=== PATIENT | female | born 1935 | race Caucasian/White ===

== ENCOUNTER 2016-11-24 14:59 | Emergency (ER) | payer MEDICARE, OTHER ==
[~2016-11-24] VITALS: Ht 152.4 cm; Wt 62.0 kg
[~2016-11-24 14:59] MED LIST: COZA100T PO; GABA100C4 PO; HYDR-3516 PO; LEVO112T2 PO
[2016-11-24 15:05] VITALS: BP 116/72; PULSE 77; RESP 15; TEMP 98.6; O2SAT 95
--- NOTE | 2016-11-24 15:14 | PD ---
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 She is concerned about possible fracture. She denies numbness or tingling. Pain is rated as a 7/10 with ambulation. Patient walks with a cane. Patient does not wear a foot drop brace and she feels it is more cumbersome. Patient is allergic to Septra, sulfa, and tramadol. PFSH Past Medical History Cancer: No Cardiovascular Problems: No COPD: Yes Diabetes: No Diminished Hearing: No Endocrine: No Gastrointestinal Disorders: No Genitourinary: Yes (BLADDER REPAIR SUSPENSION) Hepatitis: No Hiatal Hernia: No Hypertension: Yes Immune Disorder: No Musculoskeletal: Yes (ARTHRITIS) Neurologic: No Psychiatric: No Reproductive: No Respiratory: Yes (BRONCHITIS, COPD) Immunizations Current: No Thyroid Disease: Yes ?: Not Past Surgical History Abdominal Surgery: Yes (GRETA.) AICD: No Cardiac Surgery: No Cholecystectomy: Yes Eye Surgery: Yes (BILAT. CATARACT SX) Gynecologic Surgery: Yes (HYSTERECTOMY) Hysterectomy: Yes Joint Replacement: No Neurologic Surgery: No Oral Surgery: Yes (polyps from throat benign) Pacemaker: No Other Surgery: Yes Social History Alcohol Use: Yes (OCC) Tobacco Use: No (QUIT 3 YRS AGO) Substance Use: No Allergies-Medications (Allergen,Severity, Reaction): Coded Allergies: Septra (Verified Allergy, Severe, swelling of tongue, 05/28/16) Sulfa (Verified Allergy, Severe, swelling of tongue, 05/28/16) Tramadol (Unverified Adverse Reaction, Severe, NAUSEA, 05/28/16) Reported Meds & Prescriptions Reported Meds & Active Scripts Active Reported Hydrochlorothiazide 12.5 Mg Cap 12.5 Mg PO 3XPERWEEK Levothyroxine (Levothyroxine Sodium) 112 Mcg Tab 112 Mcg PO DAILY Hydrocodone-Acetaminophen 5-325 mg Tab 1 Tab PO Q6H PRN Cozaar (Losartan Potassium) 100 Mg Tab 100 Mg PO DAILY Gabapentin 100 Mg Cap 100 Mg PO TID Review of Systems Except as stated in HPI: all other systems reviewed are Neg General / Constitutional: No: Fever Eyes: No: Visual changes HENT: No: Headaches Cardiovascular: No: Chest Pain or Discomfort Respiratory: No: Shortness of Breath Gastrointestinal: No: Abdominal Pain Genitourinary: No: Dysuria Musculoskeletal: Positive: Myalgias (see history present illness.), Arthralgias , Limited ROM, Pain Skin: No Rash Neurologic: No: Weakness Psychiatric: No: Depression Endocrine: No: Polydipsia Hematologic/Lymphatic: No: Easy Bruising Physical Exam Narrative GENERAL: Patient appears no acute distress. SKIN: Warm and dry. Normal color. Normal turgor. HEAD: Atraumatic. Normocephalic. EYES: Pupils equal and round. No scleral icterus. No injection or drainage. ENT: No nasal bleeding or discharge. Mucous membranes pink and moist. Pharynx is clear. Airway is patent. NECK: Trachea midline. Supple and nontender. CARDIOVASCULAR: Regular rate and rhythm. RESPIRATORY: No accessory muscle use. Clear to auscultation. Breath sounds equal bilaterally. MUSCULOSKELETAL: Extremities without clubbing, cyanosis, or edema. No obvious deformities. Patient has noted foot drop on the right. Patient complains of pain with palpation to the distal lateral foot without obvious signs of trauma or dislocation. No significant swelling is noted. Patient does have mild tenderness at the base of the fifth metatarsal. NEUROLOGICAL: Awake and alert. No obvious cranial nerve deficits. Motor grossly within normal limits. Five out of 5 muscle strength in the arms and legs. Normal speech. PSYCHIATRIC: Appropriate mood and affect; insight and judgment normal. Data Data Last Documented VS Orders Foot, Complete ([id number]) (11/24/16 15:17) Splint Or Brace Apply/Monitor (11/24/16 16:03) Shoe Cast (11/24/16 ) MDM Medical Decision Making Medical Screen Exam Complete: Yes Emergency Medical Condition: Yes Differential Diagnosis Fall. Right foot sprain. Right foot fracture. Narrative Course Patient is medically stable at time of exam. X-rays the right foot is ordered. Ice pack is applied. X-ray shows slightly displaced proximal fifth metatarsal fracture. Patient is placed in a postop shoe. Patient has a walker at home. Patient is to use ice and limited ambulation and follow-up with Dr. Hernández if necessary. Patient follow with her primary care physician as discussed. Patient can return to emergency department as needed. Diagnosis Primary Impression: Fracture of fifth metatarsal bone of right foot Qualified Code: S92.351A - Closed displaced fracture of fifth metatarsal bone of right foot, initial encounter Referrals: Warren Hernández DPM Patient Instructions: General Instructions Additional Instructions: Ice pack is applied. X-ray shows slightly displaced proximal fifth metatarsal fracture. Patient is placed in a postop shoe. Patient has a walker at home. Patient is to use ice and limited ambulation and follow-up with Dr. Hernández if necessary. Patient follow with her primary care physician as discussed. Patient can return to emergency department as needed. Med/Other Pt SpecificInfo: No Meds Exist/No RX given Disposition: DISCHARGE HOME Condition: Stable Ean Aguirre November 24, 2016 15:14 Patient follow with her primary care physician as discussed. Patient can return to emergency department as needed. Med/Other Pt SpecificInfo: No Meds Exist/No RX given Disposition: DISCHARGE HOME Condition: Stable Ean Aguirre November 24, 2016 15:14
[2016-11-24] MEDS ORDERED: HYDR12.57 PO (15:25)
--- NOTE | 2016-11-24 15:58 | RADHPO ---
EXAM DATE/TIME: 11/24/2016 15:28 [facility] COMPARISON: No previous studies available for comparison. INDICATIONS : Right foot pain post fall two days ago MEDICAL HISTORY : None. SURGICAL HISTORY : None. ENCOUNTER: Initial ACUITY: 2 days PAIN SCORE: 6/10 LOCATION: Right lateral foot FINDINGS: Mild osteoarthritis of the first MTP joint. Plantar and posterior calcaneal spur formation. Mildly di splaced fracture through the base of the fifth metatarsal. Bone density is decreased. CONCLUSION: 1. Fifth metatarsal fracture. Mina Devlin MD on November 24, 2016 at 15:56 Board Certified Radiologist. This report was verified electronically.
== END 2016-11-24 16:36 | disposition home or self-care (01) ==
LOC: PHEFT 14:59
DX: S92.351A Displaced fracture of fifth metatarsal bone, right foot, initial encounter for closed fracture (principal); M21.371 Foot drop, right foot; J44.9 Chronic obstructive pulmonary disease, unspecified; I10 Essential (primary) hypertension; M19.90 Unspecified osteoarthritis, unspecified site; E07.9 Disorder of thyroid, unspecified; W19.XXXA Unspecified fall, initial encounter; Z79.899 Other long term (current) drug therapy; Z88.2 Allergy status to sulfonamides
CPT/HCPCS: 73630; 99283; L3260

== ENCOUNTER 2017-08-09 02:46 | Emergency (ER) | payer MEDICARE, OTHER ==
[~2017-08-09] VITALS: Ht 149.9 cm; Wt 60.2 kg
[~2017-08-09 02:46] MED LIST changes: +HYDR12.57 PO
[2017-08-09 02:52] VITALS: BP 177/93; PULSE 102; RESP 18; TEMP 98.5; O2SAT 97
[2017-08-09] MEDS ORDERED: SODIUM CHLOR 0.9% 1000 ML INJ 1,000 ML IV SCH (03:03)
--- NOTE | 2017-08-09 03:09 | PD ---
HPI Chief Complaint: abdominal pain Time Seen by Provider: 02:49 Travel History International Travel<30 days: No Contact w/Intl Traveler<30days: No Traveled to known affect area: No History of Present Illness HPI 81-year-old female complains of low back pain and abdominal pain. Patient started having low back pain yesterday. Patient states that pain is aching pain localized to low back area. Patient denies any pain radiation. Patient states the pain is worse today. Patient started having low abdominal pain and nausea vomiting this evening. Patient states the pain in cramping pain localized to left side and lower abdomen area. Patient denies any pain radiation. Patient states that she has intermittent nausea vomiting this evening also. Patient denies any dysuria or frequency. Patient denies any vaginal discharge or bleeding. Patient denies any fever chills. Patient status post cholecystectomy and hysterectomy in the past. PFSH Past Medical History Cancer: No Cardiovascular Problems: No COPD: Yes Diabetes: No Diminished Hearing: No Endocrine: No Gastrointestinal Disorders: No Genitourinary: Yes (BLADDER REPAIR SUSPENSION) Hepatitis: No Hiatal Hernia: No Hypertension: Yes Immune Disorder: No Musculoskeletal: Yes (ARTHRITIS) Neurologic: No Psychiatric: No Reproductive: No Respiratory: Yes (BRONCHITIS, COPD) Immunizations Current: No Thyroid Disease: Yes Past Surgical History Abdominal Surgery: Yes (GRETA.) AICD: No Cardiac Surgery: No Cholecystectomy: Yes Eye Surgery: Yes (BILAT. CATARACT SX) Gynecologic Surgery: Yes (HYSTERECTOMY) Hysterectomy: Yes Joint Replacement: No Neurologic Surgery: No Oral Surgery: Yes (polyps from throat benign) Pacemaker: No Other Surgery: Yes Social History Alcohol Use: Yes (OCC) Tobacco Use: No (QUIT 3 YRS AGO) Substance Use: No Allergies-Medications (Allergen,Severity, Reaction): Coded Allergies: Sulfa (Sulfonamide Antibiotics) (Unverified Allergy, Severe, swelling of tongue, 08/09/17) sulfamethoxazole (Unverified Allergy, Severe, swelling of tongue, 08/09/17) trimethoprim (Unverified Allergy, Severe, swelling of tongue, 08/09/17) tramadol (Unverified Adverse Reaction, Severe, NAUSEA, 08/09/17) Uncoded Allergies: Muscle Relaxant (Allergy, Severe, Angioedema , 08/09/17) Reported Meds & Prescriptions Reported Meds & Active Scripts Active Reported Preservision Areds (Multiple Vitamins W/ Minerals) 1 Tab 1 Tab PO DAILY Hydrochlorothiazide 12.5 Mg Cap 12.5 Mg PO 3XPERWEEK Levothyroxine (Levothyroxine Sodium) 112 Mcg Tab 112 Mcg PO DAILY Cozaar (Losartan Potassium) 100 Mg Tab 100 Mg PO DAILY Review of Systems General / Constitutional: No: Fever Eyes: No: Visual changes HENT: No: Headaches Cardiovascular: No: Chest Pain or Discomfort Respiratory: No: Shortness of Breath Gastrointestinal: Positive: Nausea, Vomiting, Abdominal Pain Genitourinary: No: Dysuria Musculoskeletal: No: Pain Skin: No Rash Neurologic: No: Weakness Psychiatric: No: Depression Endocrine: No: Polydipsia Hematologic/Lymphatic: No: Easy Bruising Physical Exam Narrative GENERAL: Well-nourished, well-developed patient. SKIN: Focused skin assessment warm/dry. HEAD: Normocephalic. EYES: No scleral icterus. No injection or drainage. NECK: Supple, trachea midline. No JVD or lymphadenopathy. CARDIOVASCULAR: Regular rate and rhythm without murmurs, gallops, or rubs. RESPIRATORY: Breath sounds equal bilaterally. No accessory muscle use. GASTROINTESTINAL: Abdomen soft, nondistended. Patient has mild to moderate tenderness on palpation left upper quadrant, left low quadrant and the lower abdomen area. No rebound tenderness. No mass. MUSCULOSKELETAL: No cyanosis, or edema. BACK: Patient has mild tenderness on palpation lower lumbar area, without obvious deformity. No CVA tenderness. Neurologic exam normal. Data Data Last Documented VS Vital Signs Date Time Temp Pulse Resp B/P (MAP) Pulse Ox O2 Delivery O2 Flow Rate FiO2 08/09/17 04:38 68 15 127/67 (87) 96 Room Air 08/09/17 02:52 98.5 Orders Orders Complete Blood Count With Diff (08/09/17 03:03) Comprehensive Metabolic Panel (08/09/17 03:03) Lipase (08/09/17 03:03) Prothrombin Time / Inr (Pt) (08/09/17 03:03) Act Partial Throm Time (Ptt) (08/09/17 03:03) Urinalysis - C+S If Indicated (08/09/17 03:03) Ct Abd/Pel W Iv Contrast(Rout) (08/09/17 03:03) Iv Access Insert/Monitor (08/09/17 03:03) Ecg Monitoring (08/09/17 03:03) Oximetry (08/09/17 03:03) Ondansetron Inj (Zofran Inj) (08/09/17 03:15) Sodium Chlor 0.9% 1000 Ml Inj (Ns 1000 M (08/09/17 03:03) Sodium Chloride 0.9% Flush (Ns Flush) (08/09/17 03:15) Famotidine Inj (Pepcid Inj) (08/09/17 03:15) Morphine Inj (Morphine Inj) (08/09/17 03:15) Iohexol 350 Inj (Omnipaque 350 Inj) (08/09/17 04:15) Morphine Inj (Morphine Inj) (08/09/17 04:45) Labs Laboratory Tests Test 08/09/17 03:17 White Blood Count 6.6 TH/MM3 Red Blood Count 4.91 MIL/MM3 Hemoglobin 14.6 GM/DL Hematocrit 43.3 % Mean Corpuscular Volume 88.1 FL Mean Corpuscular Hemoglobin 29.7 PG Mean Corpuscular Hemoglobin Concent 33.7 % Red Cell Distribution Width 14.0 % Platelet Count 214 TH/MM3 Mean Platelet Volume 8.6 FL Neutrophils (%) (Auto) 62.1 % Lymphocytes (%) (Auto) 27.3 % Monocytes (%) (Auto) 4.2 % Eosinophils (%) (Auto) 5.8 % Basophils (%) (Auto) 0.6 % Neutrophils # (Auto) 4.1 TH/MM3 Lymphocytes # (Auto) 1.8 TH/MM3 Monocytes # (Auto) 0.3 TH/MM3 Eosinophils # (Auto) 0.4 TH/MM3 Basophils # (Auto) 0.0 TH/MM3 CBC Comment DIFF FINAL Differential Comment Prothrombin Time 9.8 SEC Prothromb Time International Ratio 1.0 RATIO Activated Partial Thromboplast Time 24.3 SEC Blood Urea Nitrogen 25 MG/DL Creatinine 1.10 MG/DL Random Glucose 115 MG/DL Total Protein 7.4 GM/DL Albumin 3.8 GM/DL Calcium Level 9.5 MG/DL Alkaline Phosphatase 131 U/L Aspartate Amino Transf (AST/SGOT) 21 U/L Alanine Aminotransferase (ALT/SGPT) 21 U/L Total Bilirubin 0.2 MG/DL Sodium Level 136 MEQ/L Potassium Level 3.7 MEQ/L Chloride Level 106 MEQ/L Carbon Dioxide Level 25.5 MEQ/L Anion Gap 5 MEQ/L Estimat Glomerular Filtration Rate 48 ML/MIN Lipase 253 U/L [facility] Medical Decision Making Medical Screen Exam Complete: Yes Emergency Medical Condition: Yes Interpretation(s) Last Impressions Abdomen/Pelvis CT 08/09/17 0303 Signed Impressions: Service Date/Time: Wednesday, August 09, 2017 04:02 - CONCLUSION: 1. No acute finding is identified in the abdomen or pelvis. 2. Nonacute findings include severe atherosclerotic disease, multiple bilateral renal cysts, and small hiatal hernia. 3. There is a sclerotic lesion in the right proximal femur that is nonspecific but imaging features favor a lesion of low biologic activity. Suggest correlation for pain in this location. Anthony Canas MD 5:07 AM. CBC within normal limit. BUN 25. Creatinine 1.10. GFR 48. Differential Diagnosis Differential diagnosis including colitis, UTI, pyelonephritis, nephrolithiasis. Narrative Course 81-year-old female with left side abdominal pain, low abdominal pain and low back pain. Diagnosis Primary Impression: Gastroenteritis Additional Impression: LOW BACK PAIN Patient Instructions: General Instructions Additional Instructions: Take medications as directed. Follow-up with personal physician. Return if persistent problem or worse. Med/Other Pt SpecificInfo: Prescription(s) given Scripts Acetaminophen-Codeine (Tylenol-Codeine #3) 300-30 mg Tab 1-2 TAB PO Q6H Y for PAIN, #10 TAB 0 Refills Prov: Christophe Mcclure MD 08/09/17 Ondansetron Odt (Zofran Odt) 4 Mg Tab 4 MG SL Q6HR Y for Nausea/Vomiting, #10 TAB 0 Refills Prov: Christophe Mcclure MD 08/09/17 Disposition: 01 DISCHARGE HOME Condition: Stable Christophe Mcclure MD Aug 09, 2017 03:09
[2017-08-09] MEDS ORDERED: SODIUM CHLORIDE 0.9% FLUSH 10 ML FLUSH IV FLUSH PRN (03:15)
[2017-08-09] MEDS ORDERED: MORPHINE SULFATE 2 MG/ML INJ IV PUSH ONE ×2 (03:15→04:45)
[2017-08-09] MEDS ORDERED: FAMOTIDINE 20 MG/2 ML VIAL IV PUSH ONE (03:15)
[2017-08-09] MEDS ORDERED: ONDANSETRON HCL 4 MG/2 ML VIAL IVP ONE (03:15)
[2017-08-09] MEDS ORDERED: OCUVTAB4 PO (03:18)
[2017-08-09 03:22] LABS: AUTOMATED NEUTROPHIL # 4.1 TH/MM3 (1.8-7.7); BASOPHIL % 0.6 % (0.0-2.0); EOSINOPHIL # 0.4 TH/MM3 (0-0.4); EOSINOPHIL % 5.8 % (0.0-4.0); HEMATOCRIT 43.3 % (35.0-46.0); HEMOGLOBIN 14.6 GM/DL (11.6-15.3); LYMPH % 27.3 % (9.0-44.0); LYMPHOCYTE # 1.8 TH/MM3 (1.0-4.8); MEAN CELL VOLUME 88.1 FL (80.0-100.0); MEAN CORPUSCULAR HEMOGLOBIN 29.7 PG (27.0-34.0); MEAN CORPUSCULAR HGB CONC 33.7 % (32.0-36.0); MEAN PLATELET VOLUME 8.6 FL (7.0-11.0); MONO % 4.2 % (0.0-8.0); MONOCYTE # 0.3 TH/MM3 (0-0.9); NEUT % 62.1 % (16.0-70.0); PLATELET COUNT 214 TH/MM3 (150-450); RED BLOOD COUNT 4.91 MIL/MM3 (4.00-5.30); WHITE BLOOD COUNT 6.6 TH/MM3 (4.0-11.0)
[2017-08-09 03:29] LABS: CHLORIDE 106 MEQ/L (98-107); SODIUM (NA) 136 MEQ/L (136-145)
[2017-08-09 03:32] LABS: CALCIUM 9.5 MG/DL (8.5-10.1)
[2017-08-09 03:33] LABS: ALBUMIN 3.8 GM/DL (3.4-5.0); BICARBONATE 25.5 MEQ/L (21.0-32.0); BLOOD UREA NITROGEN 25 MG/DL (7-18); GLUCOSE,RANDOM 115 MG/DL (74-106); PROTHROMBIN TIME - PATIENT 9.8 SEC (9.8-11.6)
[2017-08-09 03:35] LABS: ALT (GPT) 21 U/L (10-53)
[2017-08-09 03:36] LABS: AST (GOT) 21 U/L (15-37); GLOMERULAR FILTRATION RATE 48 ML/MIN (>89)
[2017-08-09 03:37] LABS: TOTAL BILIRUBIN ADULT 0.2 MG/DL (0.2-1.0); TOTAL PROTEIN 7.4 GM/DL (6.4-8.2)
[2017-08-09 03:38] LABS: ALKALINE PHOSPHATASE 131 U/L (45-117)
[2017-08-09] MEDS ORDERED: IOHEXOL 350 MG/ML 10 ML VIAL (for RAD DIAG) IVCONTRAST ONE (04:15)
--- NOTE | 2017-08-09 04:35 | RADRPT ---
EXAM DATE/TIME: 08/09/2017 04:02 [facility] COMPARISON: CT ABDOMEN & PELVIS W CONTRAST, January 02, 2014, 9:53. INDICATIONS : Abdominal pain. IV CONTRAST: 75 cc Omnipaque 350 (iohexol) IV ORAL CONTRAST: No oral contrast ingested. RADIATION DOSE: 9.51 CTDIvol (mGy) MEDICAL HISTORY : Hypertension. SURGICAL HISTORY : Cholecystectomy. Hysterectomy.Bladder. ENCOUNTER: Initial ACUITY: 1 day PAIN SCALE: 8/10 LOCATION: lower quadrant upper quadrant. TECHNIQUE: Volumetric scanning of the abdomen and pelvis was performed. Using automated exposure control and ad justment of the mA and/or kV according to patient size, radiation dose was kept as low as reasonably achievable to obtain optimal diagnostic quality images. DICOM format image data is available electro nically for review and comparison. FINDINGS: LOWER LUNGS: The visualized lower lungs are clear. LIVER: Homogeneous density without lesion. There is mild intrahepatic bile duct dilatation. Gallbladder is absent. The common bile duct measures approximately 10 mm similar to the prior report. SPLEEN: Normal size without lesion. PANCREAS: Within normal limits. KIDNEYS: Normal in size and shape. There is no mass, stone or hydronephrosis. There are innumerable low-densi ty lesions in both kidneys measuring up to 5.4 cm on the right and 4.2 cm and the left. The lesions l arger than a centimeter have density measurements consistent with a cyst while the smaller lesions ar e too small to characterize. ADRENAL GLANDS: Within normal limits. VASCULAR: There is no aortic aneurysm. There is severe atherosclerotic disease. BOWEL/MESENTERY: The stomach, small bowel, and colon demonstrate no acute abnormality. There is no free intraperitone al air or fluid. Appendix is normal. There is sigmoid diverticulosis. ABDOMINAL WALL: Within normal limits. RETROPERITONEUM: There is no lymphadenopathy. BLADDER: No wall thickening or mass. REPRODUCTIVE: Uterus is absent. INGUINAL: There is no lymphadenopathy or hernia. MUSCULOSKELETAL: There are degenerative changes of the lumbar spine. There is a sclerotic lesion in the right proximal femur in the intertrochanteric region measuring approximately 19 mm. CONCLUSION: 1. No acute finding is identified in the abdomen or pelvis. 2. Nonacute findings include severe atherosclerotic disease, multiple bilateral renal cysts, and smal l hiatal hernia. 3. There is a sclerotic lesion in the right proximal femur that is nonspecific but imaging features f avor a lesion of low biologic activity. Suggest correlation for pain in this location. Anthony Canas MD on August 09, 2017 at 4:27 Board Certified Radiologist. This report was verified electronically.
[2017-08-09 04:38] VITALS: BP 127/67; PULSE 68; RESP 15; O2SAT 96
[2017-08-09] MEDS ORDERED: TYLETAB34 PO (05:14)
[2017-08-09] MEDS ORDERED: ZOFR4TAB3 SL (05:14)
[2017-08-09 06:09] VITALS: RESP 15
[2017-08-09 06:10] VITALS: BP 125/70
[2017-08-09 06:32] LABS: BILIRUBIN, URINE NEG (NEG); BLOOD, URINE NEG (NEG); GLUCOSE,URINE NEG (NEG); KETONE, URINE NEG (NEG); NITRITE,URINE NEG (NEG); PH, URINE 5.5 (5.0-8.5); URINE LEUKOCYTE ESTERASE NEG (NEG)
[2017-08-09 06:39] LABS: URINE COLOR YELLOW (YELLW/STRAW)
[2017-08-09 06:41] LABS: SQUAMOUS EPITHELIAL CELL URINE 0-5 /hpf (0-5)
[2017-08-09 06:42] LABS: WBC, URINE 0-2 /hpf (0-5)
[2017-08-09 06:43] LABS: AMORPHOUS SEDIMENT, URINE MOD; BACTERIA, URINE MOD /hpf
== END 2017-08-09 06:34 | disposition home or self-care (01) ==
LOC: PHED 02:46
DX: K52.9 Noninfective gastroenteritis and colitis, unspecified (principal); M54.5 Low back pain; J44.9 Chronic obstructive pulmonary disease, unspecified; I10 Essential (primary) hypertension; Z88.2 Allergy status to sulfonamides; Z88.8 Allergy status to other drugs, medicaments and biological substances
CPT/HCPCS: 74177; 80053; 81001; 83690; 85025; 85610; 85730; 87086; 96361; 96374; 96375; 96376; 99284; J2270; J2405; J7030; Q9967